=== PATIENT | male | born 1985 | race Caucasian/White ===

== ENCOUNTER 2023-03-06 19:29 | Emergency (ER) | payer BC ==
[~2023-03-06] VITALS: Ht 170.2 cm; Wt 74.8 kg
[2023-03-06 19:45] VITALS: BP_SYST 116; PULSE 90; RESP 18; TEMP 98.3; O2SAT 97
== END 2023-03-06 21:10 | disposition left against medical advice (07) ==
LOC: SED 19:29
DX: R55 Syncope and collapse (principal); Z53.21 Procedure and treatment not carried out due to patient leaving prior to being seen by health care provider
CPT/HCPCS: 93005; 99281